=== PATIENT | female | born 1975 | race Two or more races ===

== ENCOUNTER 2024-08-27 15:49 | Emergency (ER) | payer MEDICAID ==
[~2024-08-27] VITALS: Ht 160 cm; Wt 66.7 kg
[2024-08-27] MEDS ORDERED: AMOX-430 PO (17:44)
[2024-08-27] MEDS ORDERED: RABIES VACCINE (PCEC)/PF 1 EA KIT IM ONE (18:24)
[2024-08-27] MEDS ORDERED: TDAP [DIPH/PERTUSSIS/TET] 0.5 ML VIAL IM ONE (18:25)
[2024-08-27] MEDS: TDAP [DIPH/PERTUSSIS/TET] 0.5 ML VIAL IM ONE (18:28)
[2024-08-27] MEDS: RABIES VACCINE (PCEC)/PF 1 EA KIT IM ONE (18:34)
[2024-08-27] MEDS: RABIES IMMUNE GLOBULIN/PF 150 UNIT/ML VIAL IM ONE (18:43)
[2024-08-27] MEDS ORDERED: IBUPROFEN 600 MG TABLET ONE (18:44)
[2024-08-27] MEDS ORDERED: AMOX/CLAVULANATE 875 MG TABLET ONE (18:45)
[2024-08-27] MEDS: IBUPROFEN 600 MG TABLET PO ONE (18:50)
[2024-08-27] MEDS: AMOX/CLAVULANATE 875 MG TABLET PO ONE (18:50)
[2024-08-27 19:13] VITALS: BP 110/79; TEMP 98.2; O2SAT 98
== END 2024-08-27 19:13 | disposition home or self-care (01) ==
LOC: ER 15:54
DX: S61.252A Open bite of right middle finger without damage to nail, initial encounter (principal); W54.0XXA Bitten by dog, initial encounter; Y93.89 Activity, other specified; Y92.89 Other specified places as the place of occurrence of the external cause; Y99.8 Other external cause status
CPT/HCPCS: 90375; 90715

== ENCOUNTER 2024-08-30 17:48 | Emergency (ER) | payer MEDICAID ==
[~2024-08-30] VITALS: Ht 160 cm; Wt 68.0 kg
[~2024-08-30 17:48] MED LIST: AMOX-430 PO
[2024-08-30 17:56] VITALS: BP 124/76; TEMP 98.3
[2024-08-30] MEDS ORDERED: RABIES VACCINE (PCEC)/PF 1 EA KIT IM ONE (18:13)
[2024-08-30] MEDS: RABIES VACCINE (PCEC)/PF 1 EA KIT IM ONE (18:21)
[2024-08-30 18:30] VITALS: O2SAT 98
== END 2024-08-30 18:37 | disposition home or self-care (01) ==
LOC: ER 17:53
DX: Z20.3 Contact with and (suspected) exposure to rabies (principal); Z23 Encounter for immunization

== ENCOUNTER 2024-09-03 15:30 | Emergency (ER) | payer MEDICAID ==
[~2024-09-03] VITALS: Ht 160 cm; Wt 69.9 kg
[2024-09-03 16:16] VITALS: BP 120/77; TEMP 98.3
[2024-09-03] MEDS ORDERED: RABIES VACCINE (PCEC)/PF 1 EA KIT IM ONE (17:28)
[2024-09-03] MEDS: RABIES VACCINE (PCEC)/PF 1 EA KIT IM ONE (17:36)
[2024-09-03 18:00] VITALS: O2SAT 100
== END 2024-09-03 18:01 | disposition home or self-care (01) ==
LOC: ER 15:35
DX: S61.252D Open bite of right middle finger without damage to nail, subsequent encounter (principal); E11.9 Type 2 diabetes mellitus without complications; Z23 Encounter for immunization; Z79.4 Long term (current) use of insulin; W54.0XXD Bitten by dog, subsequent encounter